=== PATIENT | male | born 1945 | race Caucasian/White ===

== ENCOUNTER 2019-11-25 10:48 | Day surgery (SDC) | payer MEDICARE, SELFPAY ==
[2019-11-22 08:23] VITALS: BMI 27.7
--- NOTE | 2019-11-23 11:06 | P.CONAN_ITS ---
Documented by User: Daniela Grande 11/23/19 11:07 HPI - Anesthesia Eval Consult details Narrative: 74yo M for Colonoscopy [facility] Past Medical History Medical History Elevated cholesterol GERD (gastroesophageal reflux disease) Hypothyroid Surgical History Surgical History H/O vasectomy Social History Social History Smoking Status: Never smoker Use of substances other than those prescribed or required for medical reasons: No Advance Directives: No Advance Directives Information Provided: No Meds Allergies Allergy/AdvReac Type Severity Reaction Status Date / Time Sulfa (Sulfonamide Allergy Unknown Verified 11/22/19 08:10 Antibiotics) Home Medications Medication Instructions Recorded Confirmed Type fluticasone propionate 1 spray INTRANASAL BEDTIME 11/22/19 11/25/19 History levothyroxine 1 tab PO DAILY 11/22/19 11/25/19 History pantoprazole 1 tab PO DAILY 11/22/19 11/25/19 History simvastatin 1 tab PO BEDTIME 11/22/19 11/25/19 History Exam Exam Date and Time: November 23, 2019 1106 Height,Weight and Vital Signs: Height 5 ft 9 in Weight 85.275 kg Assessment and Plan Assessment Anesthesia Assessment: Chart Reviewed (11/23/19 ) Documented by User: Tamia Branch 11/25/19 12:34 [facility] Past Medical History Medical History Elevated cholesterol GERD (gastroesophageal reflux disease) Hypothyroid Family History Family history of problems with anesthesia: No Surgical History Surgical History H/O vasectomy History of Problems with Anesthesia: No Social History Social History Smoking Status: Never smoker Use of substances other than those prescribed or required for medical reasons: No Advance Directives: No Advance Directives Information Provided: No Travel History History of recent travel: No Meds Allergies Allergy/AdvReac Type Severity Reaction Status Date / Time Sulfa (Sulfonamide Allergy Unknown Verified 11/22/19 08:10 Antibiotics) Home Medications Medication Instructions Recorded Confirmed Type fluticasone propionate 1 spray INTRANASAL BEDTIME 11/22/19 11/25/19 History levothyroxine 1 tab PO DAILY 11/22/19 11/25/19 History pantoprazole 1 tab PO DAILY 11/22/19 11/25/19 History simvastatin 1 tab PO BEDTIME 11/22/19 11/25/19 History Exam Height,Weight and Vital Signs: Vital Signs Temp Pulse Resp BP Pulse Ox 11/25/19 11:37 97.1 F 66 18 152/71 H 100 Airway Mallampati Class: II TM Dist: >3cm Neck ROM: Full Loose/Missing/Broken Teeth: No Heart: RRR Lungs: CTAB Assessment and Plan Assessment Anesthesia Assessment: Anesthesia Plan Discussed, Consent Obtained and Chart Reviewed Final Anesthetic Review NPO: Yes Intake Type: Clears Intake Timing: Greater than 8 hours and Solids Intake Timing: Greater than 8 hours ASA Class: II Final Preanesthetic Review: No Changes in Pt Med Stat, Meds & Allergies Reviewed, Consent Obtained/Reviewed, Med/Surg/Anes Hx Reviewed and Anes Risks/Benef Reviewed Patient Risk: Low Procedure Risk: Low Anesthetic Plan Anesthetic Plan: MAC: Disposition: Standard PACU
[2019-11-25 11:37] VITALS: BP 152/71; PULSE 66; RESP 18; TEMP 36.2; O2SAT 100
[2019-11-25 12:37] VITALS: BP 100/55; PULSE 59; RESP 14; TEMP 36.5
[2019-11-25 12:50] VITALS: BP 106/64; PULSE 57; RESP 18; TEMP 36.4; O2SAT 98
--- NOTE | 2019-11-25 13:30 | HO.POSTANES ---
Post Anesthesia Evaluation Post Anesthesia Evaluation Vital Signs: Vital Signs Temp Pulse Resp BP Pulse Ox 11/25/19 12:50 97.6 F 57 18 106/64 98 11/25/19 12:37 97.7 F 59 14 100/55 L 11/25/19 11:37 97.1 F 66 18 152/71 H 100 Anesthesia: Monitored Mental Status: Awake Pain Control: Satisfactory Nausea/Vomiting: None Hydration: Adequate Anesthesia-Related Issues: No Anes. Related Issues
--- NOTE | 2019-11-25 23:05 | OP_ITS ---
SURGEON: Edgar Vicente MD INDICATIONS: Colon cancer screening and prior history of adenomatous colon polyps. PREOPERATIVE DIAGNOSIS: POSTOPERATIVE DIAGNOSIS: PROCEDURE PERFORMED: Colonoscopy to the terminal ileum with snare polypectomy. ESTIMATED BLOOD LOSS: COMPLICATIONS: ANESTHESIA: ASSISTANTS: SPECIMENS: MEDICATIONS: Monitored anesthesia care. DESCRIPTION OF PROCEDURE: History and physical performed. The risks and benefits of the procedure were explained to the patient. Informed consent was obtained. The patient was placed in the left lateral decubitus position. A digital rectal exam was performed and was found to be normal. The Olympus pediatric video colonoscope was introduced into the rectum and advanced to the cecum without difficulty. The cecum was identified by transillumination, palpation, and identification of ileocecal valve. Examination was performed and the scope was removed. He tolerated the procedure well and was taken to recovery area in stable condition. FINDINGS: The terminal ileum was normal. The visualized colonic mucosa was normal. The quality of the prep was good. There were multiple polyps, all measuring less than 10 mm. These were removed with a snare. One was located at 80 cm, one was located at 70 cm, and could not be recovered for technical reasons. Two were located at 60 cm. Mild to moderate diverticulosis of the sigmoid was noted. Retroflexed examination showed large internal hemorrhoids. IMPRESSION: Colon polyps. RECOMMENDATION: Follow up biopsy results. MD SAW Moreau/SHASHI / [id number]
== END 2019-11-25 13:52 | disposition home or self-care (01) ==
PROVIDERS: PCP Family Medicine; Visit Provider Internal Medicine Gastroenterology
PROC: 0DJD8ZZ Inspection of Lower Intestinal Tract, Via Natural or Artificial Opening Endoscopic (ICD-10-PCS; CPT 45378; principal; 2019-11-25 12:10)
DX: Z12.11 Encounter for screening for malignant neoplasm of colon (principal); Z86.010 Personal history of colon polyps; D12.4 Benign neoplasm of descending colon; K63.5 Polyp of colon; K21.9 Gastro-esophageal reflux disease without esophagitis; E78.00 Pure hypercholesterolemia, unspecified; Z79.899 Other long term (current) drug therapy; Z88.2 Allergy status to sulfonamides
CPT/HCPCS: 45385; 88305

== ENCOUNTER 2020-03-05 11:58 | Outpatient (REF) | payer MEDICARE, SELFPAY ==
[2020-03-05 14:34] LABS: Alanine Aminotransferase 22 U/L (0-40); Estimated Glomerular Filt Rate > 60
[2020-03-05 14:44] LABS: Free T4 (Free Thyroxine) 1.25 ng/dL (0.71-1.85); Thyroid Stimulating Hormone 0.58 uIU/mL (0.32-4.0)
== END 2020-03-05 11:59 | disposition home or self-care (01) ==
LOC: HO.10HDL 11:58
PROVIDERS: Visit Provider Family Medicine
DX: E78.00 Pure hypercholesterolemia, unspecified (principal); E03.9 Hypothyroidism, unspecified; Z79.899 Other long term (current) drug therapy
CPT/HCPCS: 36415; 82550; 82565; 84439; 84443; 84460

== ENCOUNTER 2020-04-03 08:48 | Outpatient (REF) | payer MEDICARE, SELFPAY ==
--- NOTE | ~2020-04-03 | XR_ITS ---
EXAMINATION: XR SHOULDER, LEFT CLINICAL INFORMATION: Pain COMPARISON: Left shoulder x-ray March 2012 TECHNIQUE: AP external rotation, Grashey, scapular Y, and axillary views of the left shoulder. FINDINGS: Bone alignment is normal. No fracture or dislocation is seen. There is mild arthritis at the glenohumeral joint and acromioclavicular joints with joint space narrowing and osteophyte formation. There are degenerative changes of the greater tuberosity. Soft tissues are unremarkable. 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
== END 2020-04-03 08:49 | disposition home or self-care (01) ==
LOC: HO.XRAY 08:48
PROVIDERS: PCP Family Medicine; Visit Provider Physician Assistant
DX: M25.512 Pain in left shoulder (principal); M75.82 Other shoulder lesions, left shoulder; M75.42 Impingement syndrome of left shoulder
CPT/HCPCS: 73030; 99202

== ENCOUNTER 2020-09-03 10:38 | Outpatient (REF) | payer MEDICARE, SELFPAY ==
[2020-09-03 12:26] LABS: Free T4 (Free Thyroxine) 1.27 ng/dL (0.71-1.85); Thyroid Stimulating Hormone 0.18 uIU/mL (0.32-4.0)
== END 2020-09-03 10:39 | disposition home or self-care (01) ==
LOC: HO.LAB 10:38
PROVIDERS: PCP Family Medicine; Visit Provider Family Medicine
DX: E03.9 Hypothyroidism, unspecified (principal)
CPT/HCPCS: 36415; 84439; 84443

== ENCOUNTER 2021-04-10 14:55 | Outpatient (REF) | payer MEDICARE, SELFPAY ==
[2021-04-10 16:19] LABS: Alanine Aminotransferase 29 U/L (0-40); Aspartate Amino Transferase 27 U/L (5-37); Estimated Glomerular Filt Rate > 60
[2021-04-10 16:40] LABS: Free T4 (Free Thyroxine) 1.11 ng/dL (0.71-1.85)
== END 2021-04-10 14:56 | disposition home or self-care (01) ==
LOC: HO.LAB 14:55
PROVIDERS: PCP Family Medicine; Visit Provider Family Medicine
DX: E03.9 Hypothyroidism, unspecified (principal); E78.00 Pure hypercholesterolemia, unspecified; Z79.899 Other long term (current) drug therapy
CPT/HCPCS: 36415; 82550; 82565; 84439; 84450; 84460

== ENCOUNTER 2021-09-30 09:19 | Outpatient (REF) | payer MEDICARE, SELFPAY ==
[2021-09-30 11:21] LABS: Alanine Aminotransferase 22 U/L (0-40); Aspartate Amino Transferase 20 U/L (5-37)
[2021-09-30 11:23] LABS: Free T4 (Free Thyroxine) 1.45 ng/dL (0.71-1.85)
== END 2021-09-30 09:20 | disposition home or self-care (01) ==
LOC: HO.10HDL 09:19
PROVIDERS: Visit Provider Family Medicine
DX: E03.9 Hypothyroidism, unspecified (principal); E78.00 Pure hypercholesterolemia, unspecified; Z79.899 Other long term (current) drug therapy
CPT/HCPCS: 36415; 82550; 84439; 84450; 84460

== ENCOUNTER 2022-04-01 14:08 | Outpatient (REF) | payer MEDICARE, SELFPAY ==
[2022-04-01 15:54] LABS: Free T4 (Free Thyroxine) 1.33 ng/dL (0.71-1.85); Thyroid Stimulating Hormone 0.55 uIU/mL (0.32-4.0)
== END 2022-04-01 14:09 | disposition home or self-care (01) ==
LOC: HO.LAB 14:08
PROVIDERS: PCP Family Medicine; Visit Provider Family Medicine
DX: E03.9 Hypothyroidism, unspecified (principal)
CPT/HCPCS: 36415; 84439; 84443

== ENCOUNTER 2022-09-19 09:08 | Outpatient (REF) | payer MEDICARE, SELFPAY ==
[2022-09-19 11:25] LABS: Alanine Aminotransferase 22 U/L (0-40); Aspartate Amino Transferase 21 U/L (5-37); Estimated Glomerular Filt Rate > 60
[2022-09-19 11:40] LABS: Free T4 (Free Thyroxine) 1.23 ng/dL (0.71-1.85)
== END 2022-09-19 09:09 | disposition home or self-care (01) ==
LOC: HO.10HDL 09:08
PROVIDERS: Visit Provider Family Medicine
DX: E03.9 Hypothyroidism, unspecified (principal); E78.00 Pure hypercholesterolemia, unspecified; Z79.899 Other long term (current) drug therapy
CPT/HCPCS: 36415; 82550; 82565; 84439; 84450; 84460

== ENCOUNTER 2022-10-28 13:52 | Outpatient (REF) | payer MEDICARE, SELFPAY ==
--- NOTE | ~2022-10-28 | XR_ITS ---
EXAMINATION: XR LUMBOSACRAL SPINE CLINICAL INFORMATION: Lower back pain COMPARISON: None available. TECHNIQUE: Three views of the lumbosacral spine. FINDINGS: There are multiple age indeterminant compression fractures. There is a moderate to severe compression fracture of T12. Mild superior endplate compression fractures are seen to T11, L1 and L2. Normal vertebral body alignment seen. Diffuse degenerative disc disease is seen throughout the visualized thoracic and lumbar spine. Findings are most severe at L4/L5 and L5/S1. There is severe posterior facet joint arthropathy is also seen at these levels. XR/XR lumbar spine 2-3V IMPRESSION: Multiple age-indeterminate compression fractures as described above. If clinically indicated, MRI of the lumbar spine can be performed to determine acuity of these fractures. Diffuse degenerative changes
== END 2022-10-28 13:53 | disposition home or self-care (01) ==
LOC: HO.XRAY 13:52
PROVIDERS: PCP Family Medicine; Visit Provider Family Medicine
DX: M54.50 Low back pain, unspecified (principal)
CPT/HCPCS: 72100

== ENCOUNTER 2023-04-16 11:48 | Outpatient (REF) | payer MEDICARE, SELFPAY ==
[2023-04-16 13:46] LABS: Alanine Aminotransferase 20 U/L (0-40); Aspartate Amino Transferase 20 U/L (5-37); Blood Urea Nitrogen 15 mg/dL (9-16); Estimated Glomerular Filt Rate > 60
[2023-04-16 13:57] LABS: Prostate Specific Antigen Scr 0.44 ng/mL (<0.05-4.0)
[2023-04-16 14:02] LABS: Free T4 (Free Thyroxine) 1.25 ng/dL (0.71-1.85); Thyroid Stimulating Hormone 0.32 uIU/mL (0.32-4.0)
== END 2023-04-16 11:49 | disposition home or self-care (01) ==
LOC: HO.10HDL 11:48
PROVIDERS: Visit Provider Family Medicine
DX: N40.0 Benign prostatic hyperplasia without lower urinary tract symptoms (principal); E78.00 Pure hypercholesterolemia, unspecified; Z79.899 Other long term (current) drug therapy; E03.9 Hypothyroidism, unspecified; Z12.5 Encounter for screening for malignant neoplasm of prostate
CPT/HCPCS: 36415; 82550; 82565; 84153; 84439; 84443; 84450; 84460; 84520

== ENCOUNTER 2023-09-30 10:53 | Outpatient (REF) | payer MEDICARE, SELFPAY ==
[2023-09-30 14:33] LABS: Alanine Aminotransferase 18 U/L (0-40); Anion Gap 10 (12-20); Aspartate Amino Transferase 21 U/L (5-37); Blood Urea Nitrogen 15 mg/dL (9-16); Carbon Dioxide 28 mmol/L (22-29); Chloride 108 mmol/L (96-108); Estimated Glomerular Filt Rate > 60; Free T4 (Free Thyroxine) 1.25 ng/dL (0.71-1.85); Potassium 4.2 mmol/L (3.3-5.1); Sodium 142 mmol/L (135-145)
== END 2023-09-30 10:54 | disposition home or self-care (01) ==
LOC: HO.10HDL 10:53
PROVIDERS: Visit Provider Family Medicine
DX: E03.9 Hypothyroidism, unspecified (principal); E78.00 Pure hypercholesterolemia, unspecified; Z79.899 Other long term (current) drug therapy; R42 Dizziness and giddiness
CPT/HCPCS: 36415; 80051; 82550; 82565; 84439; 84450; 84460; 84520

== ENCOUNTER 2024-03-29 07:43 | Outpatient (REF) | payer MEDICARE, SELFPAY ==
[2024-03-29 11:04] LABS: Alanine Aminotransferase 19 U/L (0-40); Anion Gap 10 (12-20); Aspartate Amino Transferase 28 U/L (5-37); Blood Urea Nitrogen 15 mg/dL (9-16); Carbon Dioxide 28 mmol/L (22-29); Chloride 111 mmol/L (96-108); Cholesterol 132 mg/dL (<200); Estimated Glomerular Filt Rate > 60; Glucose Fasting 94 mg/dL (60-99); HDL Cholesterol 35 mg/dL (>40); LDL Cholesterol Calculated 81 mg/dL (<100); Potassium 4.1 mmol/L (3.3-5.1); Sodium 145 mmol/L (135-145); Triglycerides 83 mg/dL (<150)
[2024-03-29 11:22] LABS: Free T4 (Free Thyroxine) 1.09 ng/dL (0.71-1.85); Thyroid Stimulating Hormone 0.29 uIU/mL (0.32-4.0)
== END 2024-03-29 07:44 | disposition home or self-care (01) ==
LOC: HO.10HDL 07:43
PROVIDERS: Visit Provider Family Medicine
DX: I10 Essential (primary) hypertension (principal); E78.00 Pure hypercholesterolemia, unspecified; E03.9 Hypothyroidism, unspecified; Z79.899 Other long term (current) drug therapy; Z83.3 Family history of diabetes mellitus
CPT/HCPCS: 36415; 80051; 80061; 82550; 82565; 82947; 84439; 84443; 84450; 84460; 84520

== ENCOUNTER 2024-10-17 09:29 | Outpatient (AMB) | payer MEDICARE, SELFPAY ==
--- NOTE | 2024-10-17 09:35 | MHC.PC.OV ---
Vital Signs 10/17/24 09:47 Height 5 ft 10 in Weight 82.1 kg BMI 26.0 BP 120/60 Respiration 18 Pulse 71 Pulse Source Pulse Oximeter Temp 97.5 F Temp Source Temporal Artery Scan Pulse Oximetry (%) 98 Oxygen Delivery Method Room Air Intake Visit Reasons: Annual PE-Kruse pt - see comments Rn Or Lpn Required: No Accompanied by: Self / Same As Patient Allergies Sulfa (Sulfonamide Antibiotics) Allergy (Verified 10/17/24 09:38) Unknown Tobacco use date assessed: 10/17/24 Fall risk assessment: 1 Fall in past year Last assessed Fall Risk: 10/17/24 Dental Screening Dental Screen Date: 10/17/24 Did you have a dental visit in the last 12 months?: Yes Did you have a dental problem in the last 6 months where you did not have access to dental care?: No Was dental information given to patient?: No HPI HPI Comments History of Present Illness Details 79-year-old male with history of hypothyroidism, hypertension, GERD, hypercholesterolemia, remote history of CVA, venous insufficiency, BPH presents to the office today for management of chronic conditions, to establish care, and for annual physical exam. Last seen by prior PCP 06/2024 Hypertension-on lisinopril. Blood pressure 120/60. BPs at home WNL Hypothyroidism-on levothyroxine GERD-pantoprazole Hyperlipidemia-simvastatin H/o TIA- 11/2023. Vision changes transient. Field of vision test at ophthalmology WNL, follow up 02/2024 and started on statin. Holter WNL. Neurologist wanted to have an implanted monitor, but prior PCP did not feel necessary. Concerns: None other than above Health maintenance: No longer undergoing colonoscopies, p.r.n. basis Lightheadedness while hiking September 04 2024. Had to watch his steps, felt unstable. Fell backwards, no syncope, no injury. Has had similar episodes in the past but has never fallen. Drinks about 64 oz per day. Does also endorse some off-balance Reviewed past medical, surgical, social, family history ROS: General: No fevers, malaise, unintentional weight loss HEENT: No blurred vision, diplopia. No sore throat, nasal congestion, rhinorrhea, sinus pain, ear pain. No hearing loss Neck - no adenopathy Cardiovascular: No chest pain, palpitations, or leg edema Respiratory: No shortness of breath, wheezing, cough GI: No dysphagia, odynophagia, globus sensation. No abdominal pain, nausea, vomiting, diarrhea, constipation, melena, hematochezia : No dysuria, hematuria, increased urinary frequency, decreased urinary output. No testicular swelling or pain. No penile discharge MSK: No myalgia, back pain, arthralgias Neuro: No headaches, weakness, paresthesias. see hpi Psych: no depression/anxiery. No AH/VH. No SI/HI Skin: No rashes or lesions EXAM: Constitutional - Awake and Alert, No apparent distress Eyes - PERRLA, EOMI. Anicteric Ears - external ears normal, canals clear, TMs intact and pearly moses with good cone of light Nose- septum midline, nares clear, no sinus tenderness Mouth/throat- mucosa moist, tongue and uvula midline, no erythema/edema or tonsillar adenopathy. Neck-trachea midline, thyroid symmetric without palpable nodules, no adenopathy Cardiovascular - S1S2, RRR, No edema Respiratory - Normal lung expansion, Normal respiratory effort, No respiratory distress, CTA bilaterally Gastrointestinal - NT / ND; +BS; No rebound or guarding - No CVA tenderness Extremities - no calf tenderness bilaterally, no swelling Musculoskeletal - Normal inspection, normal ROM Skin - Warm/Dry, no concerning lesions Neurological - Alert & oriented x3, horizontal nystagmus otherwise CN II-XII in tact, 5/5 strength BUE and BLE, 2+ patellar reflexes, sensation intact Psychological - Appropriate affect PFSH Medical History (Updated 10/17/24 @ 10:27 by JAY Rachel) Degenerative disc disease, lumbar Hypertension BPPV (benign paroxysmal positional vertigo) History of TIA (transient ischemic attack) Hypothyroid GERD (gastroesophageal reflux disease) Elevated cholesterol Surgical History (Updated 10/13/24 @ 16:32 by Sophy Arthur) History of colonoscopy (~11/25/19) H/O vasectomy Family History (Updated 10/17/24 @ 10:17 by JAY Rachel) Father Carotid artery occlusion Black lung disease Mother Breast cancer Diabetes ESRD needing dialysis Social History (Updated 04/03/20 @ 10:10 by Lucia Prater CMA) Housing: House Patient Tobacco Use Status: Never used Tobacco e-Cigarette/Vaping Use: Never Used Current occupational status: employed 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 1. Little interest or pleasure in doing things: not at all 2. Feeling down, depressed, or hopeless: not at all 3. Trouble falling or staying asleep, or sleeping too much: not at all 4. Feeling tired or having little energy: not at all 5. Poor appetite or overeating: not at all 6. Feeling bad about yourself - or that you are a failure or have let yourself or your family down: not at all 7. Trouble concentrating on things, such as reading the newspaper or watching television: not at all 8. Moving or speaking so slowly that other people could have noticed. Or the opposite - being so fidgety or restless that you have been moving around a lot more than usual: not at all 9. Thoughts that you would be better off or of hurting yourself in some way: not at all Total score: 0 Source: Developed by Drs. Gabriel Bradley, Dorita Lujan, Peter Silver and colleagues, with an educational amauri from [employer]. Thrive Questionnaire Date Thrive assessed: 10/17/24 I am a: Patient What is your living situation today?: I have a steady place to live Within the past 12 months, did the food you bought not last and you didn't have the money to get more?: Never true Within the past 12 months, did you worry whether your food would run out before you got money to buy more?: Never true Do you have trouble paying for medicines?: No Do you have trouble getting transportation to medical appointments?: No Do you have trouble paying your heating and electricity bill?: No Do you have trouble taking care of your child, family member or friend?: No Do you have trouble with day-to-day activities such as bathing, preparing meals, shopping, managing finances, etc.?: No Are you currently unemployed and looking for a job?: No Are you interested in more education?: No Please select the resources that you would like help with: None THRIVE Score: 0 DENISHA-7 AMB Questionnaire DENISHA-7 Date DENISHA - 7 assessed: 10/17/24 Feeling nervous, anxious, or on edge: 0 = Not at all Not being able to stop or control worryin = Not at all Worrying too much about different things: 0 = Not at all Trouble relaxin = Not at all Being so restless that it is hard to sit still: 0 = Not at all Becoming easily annoyed or irritable: 0 = Not at all Feeling afraid as if something awful might happen: 0 = Not at all Total DENISHA-7 score (0-4 normal; 5-9 mild; 10-14 moderate; 15-21 severe): 0 Source: Developed by Drs. Gabriel Bradley, Dorita Lujan, Peter Silver and colleagues, with an educational amauri from [employer]. Physical exam (Primary Care) Vital Signs: Last Vital Signs Temp 97.5 F 10/17/24 09:47 Pulse 71 10/17/24 09:47 Resp 18 10/17/24 09:47 BP 120/60 10/17/24 09:47 Pulse Ox 98 10/17/24 09:47 Oxygen Delivery Method Room Air 10/17/24 09:47 BMI result Body Mass Index 26.0 Tobacco/Smoking Status: Tobacco use Status Tobacco use date assessed 10/17/24 10/17/24 09:49 Patient Tobacco Use Status Never used Tobacco 10/17/24 09:49 e-Cigarette/Vaping Use Never Used 10/17/24 09:49 PHQ-9: PHQ-9 Score PHQ-9: Total score 0 10/17/24 09:52 Thrive Assessment: Date of Thrive Assessment Date Thrive assessed 10/17/24 10/17/24 09:49 Coding Level of Care Code Complex EM visit Add On G2211 Diagnoses Routine medical exam Z00.00 Elevated cholesterol E78.00 Hypothyroid E03.9 BPPV (benign paroxysmal positional vertigo) H81.10 Hypertension I10 Assessment & Plan Assessment & Plan (1) Routine medical exam: Code(s): Z00.00 - Encounter for general adult medical examination without abnormal findings Plan: Plan as below (2) Elevated cholesterol: Code(s): E78.00 - Pure hypercholesterolemia, unspecified Category: Medical Plan: Lipid panel ordered. Continue simvastatin (3) Hypothyroid: Code(s): E03.9 - Hypothyroidism, unspecified Category: Medical Plan: TSH with reflex free T4 ordered. Continue levothyroxine (4) BPPV (benign paroxysmal positional vertigo): Code(s): H81.10 - Benign paroxysmal vertigo, unspecified ear Category: Medical Plan: Counseled on BPPV. Susanna maneuver exercises provided (5) Hypertension: Code(s): I10 - Essential (primary) hypertension Category: Medical Plan: Controlled. Continue lisinopril. Can contribute blood pressures at home Plan Routine screening labs as ordered below No longer undergoing colonoscopies or PSA Continue following for annual skin exams and use sun protection Annual eye exams Wear seat belt in car Recommend regular exercise and healthy diet Follow up in 3 months Continue aspirin and statin given history of CVA Orders: Orders Complete Blood Count Auto Diff Today E03.9 - Hypothyroidism, unspecified, E78.00 - Pure hypercholesterolemia, unspecified, H81.10 - Benign paroxysmal vertigo, unspecified ear, Z86.73 - Personal history of transient ischemic attack (TIA), and cerebral infarction without residual deficits Lipid Panel Today E03.9 - Hypothyroidism, unspecified, E78.00 - Pure hypercholesterolemia, unspecified, H81.10 - Benign paroxysmal vertigo, unspecified ear, Z86.73 - Personal history of transient ischemic attack (TIA), and cerebral infarction without residual deficits Liver Panel Today E03.9 - Hypothyroidism, unspecified, E78.00 - Pure hypercholesterolemia, unspecified, H81.10 - Benign paroxysmal vertigo, unspecified ear, Z86.73 - Personal history of transient ischemic attack (TIA), and cerebral infarction without residual deficits TSH reflex Free T4 Today E03.9 - Hypothyroidism, unspecified, E78.00 - Pure hypercholesterolemia, unspecified, H81.10 - Benign paroxysmal vertigo, unspecified ear, Z86.73 - Personal history of transient ischemic attack (TIA), and cerebral infarction without residual deficits Basic Metabolic Panel Today E03.9 - Hypothyroidism, unspecified, E78.00 - Pure hypercholesterolemia, unspecified, H81.10 - Benign paroxysmal vertigo, unspecified ear, Z86.73 - Personal history of transient ischemic attack (TIA), and cerebral infarction without residual deficits
[2024-10-17 09:47] VITALS: BP 120/60; PULSE 71; RESP 18; TEMP 36.4; O2SAT 98; BMI 26.0
== END 2024-10-17 10:29 | disposition home or self-care (01) ==
LOC: HO.HMCHD 09:30
PROVIDERS: PCP Physician Assistant; Visit Provider Physician Assistant
DX: Z00.00 Encounter for general adult medical examination without abnormal findings (principal); E78.00 Pure hypercholesterolemia, unspecified; E03.9 Hypothyroidism, unspecified; I10 Essential (primary) hypertension; H81.13 Benign paroxysmal vertigo, bilateral

== ENCOUNTER → 2024-10-17 09:29 | Outpatient (BNVA) | payer MEDICARE, SELFPAY | PROVIDERS: PCP Physician Assistant; Visit Provider Physician Assistant | DX: Z00.00 Encounter for general adult medical examination without abnormal findings (principal); E78.00 Pure hypercholesterolemia, unspecified; E03.9 Hypothyroidism, unspecified; H81.10 Benign paroxysmal vertigo, unspecified ear; I10 Essential (primary) hypertension; K21.9 Gastro-esophageal reflux disease without esophagitis; Z86.73 Personal history of transient ischemic attack (TIA), and cerebral infarction without residual deficits; Z79.899 Other long term (current) drug therapy; Z13.39 Encounter for screening examination for other mental health and behavioral disorders; Z13.30 Encounter for screening examination for mental health and behavioral disorders, unspecified | CPT/HCPCS: 96127; 99387 ==

== ENCOUNTER 2024-10-17 10:45 | Outpatient (REF) | payer MEDICARE, SELFPAY ==
[2024-10-17 13:19] LABS: MANUAL DIFF FLAG NO
[2024-10-17 13:27] LABS: Hematocrit 42.9 % (42.0-52.0); Hemoglobin 14.6 g/dl (14.0-18.0); Imm Gran Abs Auto 0.03 X10*3/uL (0.00-0.03); Imm Gran Pct Auto 0.3 % (0.0-0.4); Lymphocytes Absolute Auto 1.8 X10*3/uL (1.2-4.9); Mean Corpuscular HGB Conc 34.0 g/dl (31.0-36.0); Mean Corpuscular Hemoglobin 32.3 pg (27.0-33.0); Mean Corpuscular Volume 94.9 fL (80.0-98.0); NRBC Abs Auto 0.000 X10*3/uL (0.0-0.012); NRBC Pct Auto 0.0 /100WBC (0.0-0.2); Platelet Count 272 X10*3/uL (160-400); Red Blood Count 4.52 X10*6/uL (4.60-5.80); White Blood Count 9.2 X10*3/uL (4.8-10.8)
[2024-10-17 13:48] LABS: Alanine Aminotransferase 24 U/L (0-40); Albumin Level 4.1 g/dL (3.5-5.0); Alkaline Phosphatase 112 U/L (39-117); Anion Gap 12 (12-20); Aspartate Amino Transferase 27 U/L (5-37); Blood Urea Nitrogen 13 mg/dL (9-16); Calcium 9.3 mg/dL (8.4-10.2); Carbon Dioxide 29 mmol/L (22-29); Chloride 106 mmol/L (96-108); Cholesterol 152 mg/dL (<200); Estimated Glomerular Filt Rate > 60; HDL Cholesterol 33 mg/dL (>40); Potassium 4.6 mmol/L (3.3-5.1); Sodium 142 mmol/L (135-145); Total Protein 6.7 g/dL (6.5-8.0); Triglycerides 153 mg/dL (<150)
[2024-10-17 14:44] LABS: Free T4 (Free Thyroxine) 1.26 ng/dL (0.71-1.85)
== END 2024-10-17 10:46 | disposition home or self-care (01) ==
LOC: HO.10HDL 10:45
PROVIDERS: Visit Provider Physician Assistant
DX: E78.00 Pure hypercholesterolemia, unspecified (principal); E03.9 Hypothyroidism, unspecified; H81.10 Benign paroxysmal vertigo, unspecified ear; Z86.73 Personal history of transient ischemic attack (TIA), and cerebral infarction without residual deficits
CPT/HCPCS: 36415; 80048; 80061; 80076; 84439; 84443; 85025

== ENCOUNTER 2024-12-30 08:07 | Outpatient (REF) | payer MEDICARE, SELFPAY ==
[2024-12-30 11:02] LABS: Cholesterol 143 mg/dL (<200); HDL Cholesterol 39 mg/dL (>40); Triglycerides 89 mg/dL (<150)
[2024-12-30 11:44] LABS: Free T4 (Free Thyroxine) 1.16 ng/dL (0.71-1.85)
== END 2024-12-30 08:08 | disposition home or self-care (01) ==
LOC: HO.10HDL 08:07
PROVIDERS: Visit Provider Physician Assistant
DX: E03.9 Hypothyroidism, unspecified (principal); I10 Essential (primary) hypertension
CPT/HCPCS: 36415; 80061; 84439; 84443

== ENCOUNTER 2025-01-17 13:39 | Outpatient (AMB) | payer MEDICARE, SELFPAY ==
--- NOTE | 2025-01-17 13:45 | MHC.PC.OV ---
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: No Accompanied by: Self / Same As Patient Allergies Sulfa (Sulfonamide Antibiotics) Allergy (Verified 01/17/25 13:45) Unknown Medication List - Last Reconciled 01/17/25 by JAY Rachel aspirin 81 mg PO DAILY atorvastatin (Lipitor) 10 mg PO DAILY cholecalciferol (vitamin D3) 25 mcg PO DAILY coenzyme Q10 (Ultra CoQ10) 75 mg PO DAILY fluticasone propionate 50 mcg/actuation 1 spray intranasal BEDTIME levothyroxine 125 mcg PO DAILY lisinopril 10 mg PO BEDTIME 90 days loratadine 10 mg PO DAILY magnesium 200 mg PO DAILY xziqujgfazwj-rhkexiwr-cnnest 1 tab PO DAILY pantoprazole 40 mg PO DAILY 90 days Tobacco use date assessed: 10/17/24 Fall risk assessment: No Falls in past year Last assessed Fall Risk: 01/17/25 Dental Screening Dental Screen Date: 10/17/24 HPI HPI Comments History of Present Illness Details 79-year-old male with history of hypothyroidism, hypertension, GERD, hypercholesterolemia, remote history of CVA, venous insufficiency, BPH presents to the office today for management of chronic conditions. Hypertension-on lisinopril. Blood pressure initially 142/60, on recheck. BPs at home sbp 140-160s, dbt 60-70s Hypothyroidism-on levothyroxine, recently decreased to 137mcg daily, repeat TSH 0.18 12/30 GERD-pantoprazole Hyperlipidemia-simvastatin, LDL 87 H/o TIA- 11/2023. Vision changes transient. Field of vision test at ophthalmology WNL, follow up 02/2024 and started on statin. Holter WNL. Neurologist wanted to have an implanted monitor, but prior PCP did not feel necessary. Concerns: BP concerns Neck pain-currently asymptomatic Hypothyroidism-as above Vertigo- occurs randomly but feels off balance Compression fractures multilevel lumbar- currently asymptomatic. MRI RAYUS Health maintenance: No longer undergoing colonoscopies, p.r.n. basis ROS: See HPI EXAM: Constitutional - Awake and Alert, No apparent distress Eyes - PERRL Cardiovascular - S1S2, RRR, No edema Respiratory - Normal lung expansion, Normal respiratory effort, No respiratory distress, CTA bilaterally Extremities - no calf tenderness bilaterally, no swelling Skin - Warm/Dry Neurological - Alert & oriented x3 Psychological - Appropriate affect PFSH Medical History (Updated 01/17/25 @ 14:24 by JAY Rachel) Degenerative disc disease, lumbar Hypertension BPPV (benign paroxysmal positional vertigo) History of TIA (transient ischemic attack) Hypothyroid GERD (gastroesophageal reflux disease) Elevated cholesterol Surgical History (Updated 10/13/24 @ 16:32 by Sophy Arthur) History of colonoscopy (~11/25/19) H/O vasectomy Family History (Updated 10/17/24 @ 10:17 by JAY Rachel) Father Carotid artery occlusion Black lung disease Mother Breast cancer Diabetes ESRD needing dialysis Social History (Updated 04/03/20 @ 10:10 by Lucia Prater [facility]) Housing: House Patient Tobacco Use Status: Never used Tobacco e-Cigarette/Vaping Use: Never Used service: No Current occupational status: employed 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 Garbiel Bradley, Dorita Lujan, Peter Silver and colleagues, with an educational amauri from [employer]. Physical exam (Primary Care) Vital Signs: Last Vital Signs Temp 97.5 F 01/17/25 13:54 Pulse 60 01/17/25 13:54 Resp 18 01/17/25 13:54 BP 142/60 H 01/17/25 13:54 Pulse Ox 97 01/17/25 13:54 Oxygen Delivery Method Room Air 01/17/25 13:54 BMI result Body Mass Index 27.3 Tobacco/Smoking Status: Tobacco use Status Tobacco use date assessed 10/17/24 01/17/25 13:47 Patient Tobacco Use Status Never used Tobacco 01/17/25 13:47 e-Cigarette/Vaping Use Never Used 01/17/25 13:47 Thrive Assessment: Date of Thrive Assessment Date Thrive assessed 10/17/24 01/17/25 13:47 Coding Level of Care Code Est Pt Level 4 (20354) Complex visit Add On G2211 Diagnoses Hypertension I10 Elevated cholesterol E78.00 Hypothyroid E03.9 BPPV (benign paroxysmal positional vertigo) H81.10 Assessment & Plan Assessment & Plan (1) Hypertension: Code(s): I10 - Essential (primary) hypertension Category: Medical Plan: Uncontrolled. Increase lisinopril to 20 mg daily. He will continue checking blood pressures at home and reach out to the office with updated readings (2) Elevated cholesterol: Code(s): E78.00 - Pure hypercholesterolemia, unspecified Category: Medical Plan: Controlled. Continue atorvastatin. Diet low in saturated fat and highly processed foods (3) Hypothyroid: Code(s): E03.9 - Hypothyroidism, unspecified Category: Medical Plan: TSH remains suppressed at 0.18 with normal free T4. We will lower levothyroxine to 125 mcg daily. He is taking this correctly. Recheck TSH with reflex free T4 in 6 weeks. If this remains suppressed, will refer to endocrinology (4) BPPV (benign paroxysmal positional vertigo): Code(s): H81.10 - Benign paroxysmal vertigo, unspecified ear Category: Medical Plan: Counseled on Susanna maneuver. Referred for ENT Plan Follow-up in the office in 6 months, labs to be completed prior to visit Orders: Orders TSH reflex Free T4 6 Weeks E03.9 - Hypothyroidism, unspecified Basic Metabolic Panel 6 Months E03.9 - Hypothyroidism, unspecified, E78.00 - Pure hypercholesterolemia, unspecified, I10 - Essential (primary) hypertension Lipid Panel 6 Months E03.9 - Hypothyroidism, unspecified, E78.00 - Pure hypercholesterolemia, unspecified, I10 - Essential (primary) hypertension Liver Panel 6 Months E03.9 - Hypothyroidism, unspecified, E78.00 - Pure hypercholesterolemia, unspecified, I10 - Essential (primary) hypertension TSH reflex Free T4 6 Months E03.9 - Hypothyroidism, unspecified, E78.00 - Pure hypercholesterolemia, unspecified, I10 - Essential (primary) hypertension Referrals Ear/Nose/Throat Referral R42 - Dizziness and giddiness, Z57.0 - Occupational exposure to noise, Z97.4 - Presence of external hearing-aid Medications: New lisinopril 20 mg PO DAILY 90 tabs 1RF levothyroxine 125 mcg PO DAILY 90 caps 1RF Discontinued lisinopril Discontinued Reason: Doctor's Order 10 mg PO BEDTIME 90 days 90 tabs 0RF levothyroxine (Levo-T) Discontinued Reason: Doctor's Order 137 mcg PO DAILY 90 tabs 1RF
[2025-01-17 13:54] VITALS: BP 142/60; PULSE 60; RESP 18; TEMP 36.4; O2SAT 97; BMI 27.3
--- OUTSIDE RECORDS SUMMARY | 2025-01-17 17:31 | XMS_ITS | Patient Health Record ---
Author Organization [facility] Address [address] [place] [id number] Care Team Providers Care Alarm Signal Operator Name Role Phone Uriah (RETIRED) Jose WISDOM Primary Care Provider Unavailable Edgar Vicente Jr Unavailable Allergies Allergen (clinical drug ingredient) Drug/Non Drug Allergy documented on EMR Reaction Allergy Type Onset Date Status Sulfa Unknown Drug Allergy Active Reason For Referral No Information Medications Medication SIG (Take, Route, Frequency, Duration) Notes Start Date End Date Status Levothyroxine Sodium 100 MCG Tablet 1 tablet in the morning on an empty stomach Orally Once a day Active Multivitamin - Tablet 1 tablet Orally On ce a day/ centrum iesha Active Magnesium Active Flonase as needed Active Simvastatin 1 tablet in the even ing Orally Once a day Active Loratadine Active Vitamin D 25 MCG (1000 UT) Tablet 1 tablet Orally Once a day; Duration: 30 day(s) Active Pantoprazole Sodium 40 MG Tablet Delayed Release 1 tablet Orally Once a day; Duration: 30 day(s) Active MiraLax (colon prep) 8.3 ounce ((238) grams mixed with Gatorade or Crystal Light orally begin at 5:00 p.m. the day before the procedure; Duration: 1 day 11/17/2019 Active Immunizations Vaccine Route Administration Date Status Comme nts Flu vaccine no Preserv 3 and > Unknown 11/02/2013 Admin istered Influenza Unknown 10/24/2018 Administered Social History Social History Additional Details Category Social Info Options Details Miscellaneous: Marital status: Occupation: retired Problems Problem Type SNOMED Code ICD Code Onset Dates Problem Status W/U Status Risk Notes Problem Colon cancer screening (010242144) Colon cancer screening (Z12.11) Active confirmed Problem Colitis (83887907) Colitis (K52.9) Active confirmed Plan Of Treatment Future Test Test Name Order Date COLONOSCOPY 06/14/2014 COLONOSCOPY 11/17/2019 Insurance Providers Payer Name Payer Address Payer Phone Subscriber Number Group Number Insured Name Patient Relationship to Insured Coverage Start Date Coverage End Date [facility] [address] [place] [phone] [id number] CLAUDIA LILLY Self - patient is the insured Medical (General) History Medical History History ICD Code esophageal reflux elevated cholesterol hypothyroidism environmental allergies Surgical History Surgery Date(Month/Year) vasectomy left thumb 8 stitches
== END 2025-01-17 14:40 | disposition home or self-care (01) ==
LOC: HO.HMCHD 13:39
PROVIDERS: PCP Physician Assistant; Visit Provider Physician Assistant
DX: I10 Essential (primary) hypertension (principal); E78.00 Pure hypercholesterolemia, unspecified; E03.9 Hypothyroidism, unspecified; H81.10 Benign paroxysmal vertigo, unspecified ear

== ENCOUNTER → 2025-01-17 13:39 | Outpatient (BNVA) | payer MEDICARE, SELFPAY | PROVIDERS: PCP Physician Assistant; Visit Provider Physician Assistant | DX: I10 Essential (primary) hypertension (principal); E78.00 Pure hypercholesterolemia, unspecified; E03.9 Hypothyroidism, unspecified; H81.10 Benign paroxysmal vertigo, unspecified ear | CPT/HCPCS: 99212 ==